=== PATIENT | male | born 1990 | race African-American/Black ===

== ENCOUNTER 2018-12-26 17:46 | Emergency (ER) | payer MEDICAID ==
[2018-12-26 18:53] VITALS: BP 146/66
[2018-12-26] MEDS ORDERED: PENICILLIN V POTASSIUM 500 MG TABLET PO ONE (20:03)
--- NOTE | 2018-12-26 20:08 | ER Document Report ---
HPI - HPI Patient complains to provider of: Tooth pain Time Seen by Provider: 12/26/18 19:56 Pain Level: 3 Context: Patient is a 28-year-old male presents to the emergency department for generalized left lower tooth pain. Patient disease had this pain for last 2 weeks. Patient states he does have a dentist appointment next . Patient states he has been taking BC and Goody powders. Past medical history: None Medications: None Allergies: None Past Medical History - General Information source: Patient - Social History Smoking Status: Unknown if Ever Smoked Family History: Reviewed & Not Pertinent Vertical Provider Document - CONSTITUTIONAL Agree With Documented VS: Yes Notes: GENERAL: Alert, interacts well. No acute distress. HEAD: Normocephalic, atraumatic. EYES: Pupils equal, round, and reactive to light. Extraocular movements intact. ENT: Oral mucosa moist, tongue midline. Patient's front upper teeth do appear to be gold capped. Tooth in question is #17. Tooth #18 is missing. There is obvious decay noted around tooth #17, gums minorly erythematous no area of fluctuance or induration noted. No Will's angina noted NECK: Full range of motion. Supple. Trachea midline. LUNGS: Clear to auscultation bilaterally, no wheezes, rales, or rhonchi. No respiratory distress. HEART: Regular rate and rhythm. No murmur ABDOMEN: Soft, non-tender. Non-distended. Bowel sounds present in all 4 quadran ts. EXTREMITIES: Moves all 4 extremities spontaneously. No edema, normal radial and dorsalis pedis pulses bilaterally. No cyanosis. BACK: no cervical, thoracic, lumbar midline tenderness. No saddle anesthesia, normal distal neurovascular exam. NEUROLOGICAL: Alert and oriented x3. Normal speech. cranial nerves II through XII grossly intact. PSYCH: Normal affect, normal mood. SKIN: Warm, dry, normal turgor. No rashes or lesions noted. - INFECTION CONTROL TRAVEL OUTSIDE OF THE [place] IN LAST 30 DAYS: No Course - Re-evaluation Re-evalutation: 12/26/18 20:07 Patient states he is driving so I am unable to give him narcotic pain medication in the emergency room. Discussed the use of antibiotics to inevitably treat the infection and then help with pain. Discussed use of [id number] Tylenol and Motrin and continue to keep appointment with dentist. Patient stable for discharge. - Vital Signs Vital signs: Temp Pulse Resp BP Pulse Ox 97.9 F 64 16 146/66 H 95 12/26/18 18:52 12/26/18 18:52 12/26/18 18:52 12/26/18 18:52 12/26/18 18:52 Discharge - Discharge Clinical Impression: Toothache, Dental decay Condition: Stable Disposition: HOME, SELF-CARE Instructions: [facility], Penicillin V K ([facility]), Toothache ([facility]) Additional Instructions: As we discussed you have been seen and treated in the emergency department for a toothache. Please make sure you take antibiotics as prescribed and follow-up with your dentist or the [facility]. Please return to the emergency room should you have any other concerning symptoms. Prescriptions: Penicillin V Potassium [Penicillin Vk 500 mg Tablet] 500 mg PO BID #20 tablet Forms: Return to Work
== END 2018-12-26 20:15 | disposition home or self-care (01) ==
LOC: ER 17:46
DX: K02.9 Dental caries, unspecified (principal); K08.89 Other specified disorders of teeth and supporting structures
CPT/HCPCS: 99282; J3490